=== PATIENT | male | born 1975 | race Two or more races ===

== ENCOUNTER 2018-04-04 17:49 | Emergency (ER) | payer MEDICAID, OTHER ==
[~2018-04-04] VITALS: Ht 175.3 cm; Wt 92.0 kg
[~2018-04-04 17:49] MED LIST: ASPI-1071 PO
[2018-04-04 18:06] VITALS: BP 131/83
[2018-04-04] MEDS ORDERED: HYDROcodone/acetaminophen 10/325mg tab PO ONE (19:10)
[2018-04-04] MEDS ORDERED: HYDR-4353 PO (19:11)
== END 2018-04-04 19:26 | disposition home or self-care (01) ==
LOC: ER 17:50
DX: R68.84 Jaw pain (principal); R59.0 Localized enlarged lymph nodes; I10 Essential (primary) hypertension; E11.9 Type 2 diabetes mellitus without complications; Z79.82 Long term (current) use of aspirin; Z79.899 Other long term (current) drug therapy
CPT/HCPCS: 99283

== ENCOUNTER 2024-04-07 14:30 | Emergency (ER) | payer BC, MEDICAID, OTHER ==
[~2024-04-07] VITALS: Ht 172.7 cm; Wt 84.1 kg
[2024-04-07] MEDS: dicyclomine 10 MG capsule PO ONE (15:21)
[2024-04-07] MEDS: ondansetron 4mg rapidly disintigrating tab PO ONE (15:21)
[2024-04-07] MEDS: HYDROcodone/acetaminophen 5mg/325mg tablet PO ONE (15:22)
[2024-04-07] MEDS: ketorolac trometh 30MG/ML vial 30 MG/ML VIAL IM ONE (15:24)
[2024-04-07 15:29] LABS: BILIRUBIN,URINE MODERATE (Neg); CLARITY,URINE CLOUDY (Clear); COLOR,URINE YELLOW (Yellow); GLUCOSE, URINE 500 mg/dl (Neg); KETONES,URINE 15 mg/dl (Neg); LEUKOCYTE ESTERASE ,URINE NEGATIVE (Neg); NITRITES, URINE NEGATIVE (Neg); OCCULT BLOOD,URINE NEGATIVE (Neg); PROTEIN,URINE 30 mg/dl (Neg); UROBILINOGEN,URINE 0.2 E.U/dL (0.2-1.0)
[2024-04-07 15:32] LABS: BASOPHILS % (AUTO) 0.2 % (0-1); EOSINOPHILS % (AUTO) 0.2 % (0-6); HEMATOCRIT 53.4 % (42.0-52.0); LYMPHOCYTES # (AUTO) 0.4 X10'3 (1.1-4.8); MEAN CORPUSCULAR HGB CONC 34.1 g/dL (33.0-36.5); MEAN CORPUSCULAR VOLUME 85.1 FL (78-98); MONOCYTES # (AUTO) 0.4 X10'3 (0-0.9); NEUTROPHILS # (AUTO) 6.4 X10'3 (1.8-7.7); NEUTROPHILS % (AUTO) 88.6 % (42-75); PLATELET COUNT 189 X10'3 (140-440); RED BLOOD COUNT 6.28 X10'6 (4.70-6.10); RED CELL DISTRIBUTION WIDTH 13.6 % (11.5-14.5); WHITE BLOOD COUNT 7.2 X10'3 (4.5-11.0)
[2024-04-07 15:35] LABS: HEMOGLOBIN 18.2 g/dl (14.0-17.9)
[2024-04-07 15:47] LABS: UA COLLECTION TYPE CLN CATCH MIDSTREAM
[2024-04-07 15:54] LABS: MUCUS STRANDS FEW /LPF (Neg); SQUAMOUS EPITHELIAL CELL,UR FEW /LPF (FEW)
[2024-04-07 15:55] LABS: AMORPHOUS URATES 1+; BACTERIA,URINE FEW /HPF (Neg); FINE GRANULAR CAST 0-3 /LPF (NEGATIVE); RBC,URINE 0-2 /HPF (0-2); WBC,URINE 0-4 /HPF (0-4)
[2024-04-07 16:03] LABS: ALANINE AMINOTRANSFERASE 145 U/L (12-78); ALBUMIN 4.1 G/DL (3.4-5.0); ALBUMIN/GLOBULIN RATIO 1.1 (1.1-1.5); ALKALINE PHOSPHATASE 107 IU/L (46-116); ANION GAP 14 (8-16); ASPARTATE AMINO TRANSFERASE 60 U/L (10-37); BILIRUBIN,TOTAL 0.8 MG/DL (0.1-1.0); BLOOD UREA NITROGEN 25 MG/DL (7-18); BUN/CREATININE RATIO 31.3 (10.0-20.0); CALCIUM 8.6 MG/DL (8.5-10.1); CHLORIDE 98 MMOL/L (99-107); GLUCOSE 236 MG/DL (70-104); LIPASE 33 U/L (16-77); POTASSIUM 3.7 MMOL/L (3.5-5.1); SODIUM 132 MMOL/L (135-145); TOTAL CARBON DIOXIDE 20.3 MMOL/L (24-32); TOTAL PROTEIN 7.8 G/DL (6.4-8.2); eCRCL 106 ML/MIN; eGFR > 90 ML/MIN
[2024-04-07] MEDS ORDERED: METR-159 PO (16:40)
[2024-04-07] MEDS ORDERED: LEVO-65 PO (16:40)
[2024-04-07 17:00] VITALS: BP 136/90; PULSE 111; RESP 16; TEMP 98.7; O2SAT 94
== END 2024-04-07 17:01 | disposition home or self-care (01) ==
LOC: ER 14:31
DX: K52.9 Noninfective gastroenteritis and colitis, unspecified (principal); I10 Essential (primary) hypertension; E11.9 Type 2 diabetes mellitus without complications; Z79.82 Long term (current) use of aspirin
CPT/HCPCS: 36415; 74176; 80053; 81001; 83690; 85025; 96372; 99285; J1885

== ENCOUNTER 2024-04-10 10:06 | Emergency (ER) | payer BC ==
[~2024-04-10] VITALS: Ht 175.3 cm; Wt 70.5 kg
[~2024-04-10 10:06] MED LIST changes: +LEVO-65 PO; +METR-159 PO
[2024-04-10 11:29] LABS: BASOPHILS % (AUTO) 0.6 % (0-1); EOSINOPHILS # (AUTO) 0.1 X10'3 (0-0.9); EOSINOPHILS % (AUTO) 2.8 % (0-6); HEMATOCRIT 48.9 % (42.0-52.0); HEMOGLOBIN 16.8 g/dl (14.0-17.9); LYMPHOCYTES # (AUTO) 1.1 X10'3 (1.1-4.8); LYMPHOCYTES % (AUTO) 34.3 % (21-51); MEAN CORPUSCULAR HGB CONC 34.4 g/dL (33.0-36.5); MEAN CORPUSCULAR VOLUME 84.2 FL (78-98); MEAN PLATELET VOLUME 8.9 FL (7.4-10.4); MONOCYTES # (AUTO) 0.6 X10'3 (0-0.9); MONOCYTES % (AUTO) 18.7 % (2-12); NEUTROPHILS # (AUTO) 1.4 X10'3 (1.8-7.7); NEUTROPHILS % (AUTO) 43.6 % (42-75); PLATELET COUNT 171 X10'3 (140-440); RED BLOOD COUNT 5.81 X10'6 (4.70-6.10); RED CELL DISTRIBUTION WIDTH 13.2 % (11.5-14.5); WHITE BLOOD COUNT 3.3 X10'3 (4.5-11.0)
[2024-04-10 12:00] LABS: ALANINE AMINOTRANSFERASE 143 U/L (12-78); ALBUMIN 3.2 G/DL (3.4-5.0); ALBUMIN/GLOBULIN RATIO 0.9 (1.1-1.5); ALKALINE PHOSPHATASE 79 IU/L (46-116); ANION GAP 9 (8-16); ASPARTATE AMINO TRANSFERASE 121 U/L (10-37); BILIRUBIN,TOTAL 0.6 MG/DL (0.1-1.0); BLOOD UREA NITROGEN 18 MG/DL (7-18); BUN/CREATININE RATIO 26.1 (10.0-20.0); CALCIUM 7.7 MG/DL (8.5-10.1); CHLORIDE 104 MMOL/L (99-107); CREATININE 0.69 MG/DL (0.60-1.10); GLUCOSE 110 MG/DL (70-104); LIPASE 60 U/L (16-77); SODIUM 138 MMOL/L (135-145); TOTAL CARBON DIOXIDE 25.3 MMOL/L (24-32); TOTAL PROTEIN 6.6 G/DL (6.4-8.2); eCRCL 126 ML/MIN; eGFR > 90 ML/MIN
[2024-04-10 12:13] LABS: POTASSIUM 3.4 MMOL/L (3.5-5.1)
[2024-04-10 13:12] LABS: BILIRUBIN,URINE NEGATIVE (Neg); CLARITY,URINE CLOUDY (Clear); COLOR,URINE YELLOW (Yellow); GLUCOSE, URINE NEGATIVE (Neg); KETONES,URINE 15 mg/dl (Neg); LEUKOCYTE ESTERASE ,URINE NEGATIVE (Neg); NITRITES, URINE POSITIVE (Neg); OCCULT BLOOD,URINE NEGATIVE (Neg); PROTEIN,URINE TRACE mg/dl (Neg); UROBILINOGEN,URINE 0.2 E.U/dL (0.2-1.0)
[2024-04-10] MEDS ORDERED: iohexol 300mg/ml 100ml inj. ONE (13:22)
[2024-04-10 13:26] LABS: UA COLLECTION TYPE VOIDED
[2024-04-10 13:30] LABS: MUCUS STRANDS MANY /LPF (Neg); SQUAMOUS EPITHELIAL CELL,UR FEW /LPF (FEW)
[2024-04-10 13:31] LABS: BACTERIA,URINE FEW /HPF (Neg); RBC,URINE 0-2 /HPF (0-2)
[2024-04-10] MEDS: morphine 4 MG/ML inj SYRINge IV ONE (13:57)
[2024-04-10] MEDS: ondansetron/PF 4mg/2ml inj IV ONE (13:58)
[2024-04-10] MEDS: normal saline 1000ML IV soln IVB ONE ×2 (13:58→15:36)
[2024-04-10 15:33] LABS: MONOTEST NEGATIVE (Neg)
[2024-04-10] MEDS ORDERED: HYDR-3972 PO (16:05)
[2024-04-10] MEDS ORDERED: ONDA-243 PO (16:05)
[2024-04-10 16:24] VITALS: BP 125/83; PULSE 67; RESP 16; TEMP 97.4; O2SAT 97
== END 2024-04-10 16:35 | disposition home or self-care (01) ==
LOC: ER 10:07
DX: I88.0 Nonspecific mesenteric lymphadenitis (principal); R10.31 Right lower quadrant pain; R11.2 Nausea with vomiting, unspecified; R19.7 Diarrhea, unspecified; R74.8 Abnormal levels of other serum enzymes; I10 Essential (primary) hypertension; E11.9 Type 2 diabetes mellitus without complications; Z79.2 Long term (current) use of antibiotics; Z79.82 Long term (current) use of aspirin; Z20.822 Contact with and (suspected) exposure to COVID-19
CPT/HCPCS: 36415; 74177; 76700; 80053; 81001; 83605; 83690; 84145; 85025; 86308; 87040; 87088; 87811; 96361; 96374; 96375; 99285; J2270; J2405; J7030; Q9967

== ENCOUNTER 2024-04-14 15:44 | Emergency (ER) | payer BC ==
[~2024-04-14] VITALS: Ht 172.7 cm; Wt 86.4 kg
[~2024-04-14 15:44] MED LIST changes: +HYDR-3972 PO; +ONDA-243 PO
[2024-04-14 15:55] VITALS: BP 108/76; PULSE 95; TEMP 97.6; O2SAT 95
[2024-04-14 17:03] VITALS: RESP 16
[2024-04-14] MEDS: ketorolac trometh 30MG/ML vial 30 MG/ML VIAL IM ONE (17:03)
[2024-04-14] MEDS ORDERED: CYCL-394 PO (17:12)
[2024-04-14] MEDS ORDERED: LIDO700A32 TOP (17:12)
[2024-04-15] MEDS ORDERED: DICL20GE TOP (19:50)
== END 2024-04-14 17:33 | disposition home or self-care (01) ==
LOC: ER 15:45
DX: S39.012A Strain of muscle, fascia and tendon of lower back, initial encounter (principal); M54.41 Lumbago with sciatica, right side; I10 Essential (primary) hypertension; E11.9 Type 2 diabetes mellitus without complications; Z79.899 Other long term (current) drug therapy; X58.XXXA Exposure to other specified factors, initial encounter; Y93.89 Activity, other specified; Y92.89 Other specified places as the place of occurrence of the external cause; Y99.8 Other external cause status
CPT/HCPCS: 72100; 96372; 99283; J1885

== ENCOUNTER 2024-04-15 16:23 | Emergency (ER) | payer BC ==
[~2024-04-15] VITALS: Ht 172.7 cm; Wt 86.8 kg
[~2024-04-15 16:23] MED LIST changes: +CYCL-394 PO; +LIDO700A32 TOP
[2024-04-15 16:25] VITALS: TEMP 98.2
[2024-04-15] MEDS ORDERED: DICL20GE TOP (19:50)
[2024-04-15] MEDS: acetaminophen 325mg tablet PO ONE (19:57)
[2024-04-15] MEDS: ketorolac trometh 15mg/ml vial 15 MG/ML ML IM ONE (19:57)
[2024-04-15 20:03] VITALS: BP 136/89; PULSE 100; RESP 16; O2SAT 96
== END 2024-04-15 20:12 | disposition home or self-care (01) ==
LOC: ER 16:23
DX: M13.88 Other specified arthritis, other site (principal); E11.9 Type 2 diabetes mellitus without complications; I10 Essential (primary) hypertension; Z79.2 Long term (current) use of antibiotics; Z79.82 Long term (current) use of aspirin; Z79.899 Other long term (current) drug therapy
CPT/HCPCS: 93971; 96372; 99285; J1885